=== PATIENT | male | born 1950 | race Caucasian/White ===

== ENCOUNTER → 2020-04-19 | Outpatient (REF) | payer MEDICARE, OTHER ==
[~2020-04-19] MED LIST: BISOPROLOL PO; CRESTOR PO; HYDROCHLOROTHIAZIDE PO; LEVO500T PO; PERC2.5T PO
== END ==
LOC: M SMT 13:12
PROVIDERS: ATTEND Urology
DX: R32 Unspecified urinary incontinence (principal)
CPT/HCPCS: 51798; 87086; G0463